=== PATIENT | male | born 1960 | race African-American/Black ===

== ENCOUNTER 2016-09-16 11:47 | Emergency (ER) | payer MEDICAID, OTHER ==
[~2016-09-16] VITALS: Ht 185.4 cm; Wt 69.0 kg
[~2016-09-16 11:47] MED LIST: ACET325T21 PO; ASPI-515 PO; BACL-19 PO; BISA10SU65 PR; CELE200C PO; DIPH25CA61 PO; DOCU-30 PO; ENOX30DI3 SQ; ENOX40SY4 SQ; FLUO20CA8 PO; FLUO40CA9 PO; HYDR-3240 PO; HYDR-3307 PO; LORA-446 PO; MULT-257 PO; MULT-484 PO; OXYC5TAB3 PO; PHEN100C PO; PREG75CA PO; RIFA300C3 PO; RIVA15TA PO; RIVA20TA PO; SENN1TAB7 PO; TRAM50TA2 PO; TRAZ100T15 PO; TRAZ50TA18 PO
[2016-09-16] MEDS ORDERED: SODIUM CHLORIDE FLUSH 10ML SYR IVF ONE (12:30)
[2016-09-16] MEDS ORDERED: SODIUM CHLORIDE 0.9% 1,000ML IVBOLUS ONE (12:30)
[2016-09-16 13:05] LABS: BLOOD UREA NITROGEN 9 mg/dL (7-18)
[2016-09-16 13:06] LABS: ASPARTATE AMINO TRANSFERASE 24 U/L (15-37)
[2016-09-16 13:07] LABS: IS PT STATUS REG ER OR PRE ER? YES
[2016-09-16 13:21] VITALS: BP 137/65
[2016-09-16] MEDS ORDERED: ONDANSETRON ODT 4 MG ONE (13:30)
[2016-09-16] MEDS ORDERED: ONDANSETRON ODT 4 MG PO ONE (13:30)
== END 2016-09-16 14:31 | disposition home or self-care (01) ==
LOC: ED 13:26
DX: R42 Dizziness and giddiness (principal); J44.9 Chronic obstructive pulmonary disease, unspecified
CPT/HCPCS: 36415; 80053; 84484; 85025; 96360; 99284; J7030; Q0162

== ENCOUNTER 2016-10-24 11:27 | Inpatient (IN) | payer MEDICAID ==
[~2016-10-24] VITALS: Ht 185.4 cm; Wt 58.3 kg
[2016-10-24] MEDS ORDERED: SODIUM CHLORIDE 0.9% 1,000 ML IV ONE (11:56)
[2016-10-24] MEDS ORDERED: SODIUM CHLORIDE FLUSH 10ML SYR IVF ONE (12:00)
[2016-10-24] MEDS ORDERED: SODIUM CHLORIDE 0.9% 1,000ML IVBOLUS ONE (12:00)
[2016-10-24 12:42] LABS: HEMATOCRIT 42.5 % (39.2-51.8); HEMOGLOBIN 13.6 g/dL (13.7-18.0); WHITE BLOOD COUNT 8.9 x10^3/uL (3.4-10)
[2016-10-24 12:52] LABS: ASPARTATE AMINO TRANSFERASE 66 U/L (15-37); BLOOD UREA NITROGEN 6 mg/dL (7-18)
[2016-10-24 12:57] LABS: IS PT STATUS REG ER OR PRE ER? YES
[2016-10-24 13:16] LABS: DIFF TOTAL CELLS COUNTED 100 CELL DIFF
[2016-10-24 13:17] LABS: ANISOCYTOSIS 1+; VERIFY COUNTS? YES
[2016-10-24] MEDS ORDERED: LIDOCAINE 1%, 20ML ONE (13:52)
[2016-10-24] MEDS ORDERED: SODIUM CHLORIDE FLUSH 10ML SYR IVF PRN (15:00)
[2016-10-24] MEDS ORDERED: ENOXAPARIN 40 MG/0.4 ML SQ SCH (15:30)
[2016-10-24] MEDS ORDERED: PHEN100C PO ×2 (16:06→16:07)
[2016-10-24] MEDS ORDERED: OXYC1TAB7 PO (16:07)
[2016-10-24 16:55] LABS: IS PT STATUS REG ER OR PRE ER? YES
[2016-10-24] MEDS ORDERED: OMNIPAQUE 350 MG/ML, 100ML BOTTLE ONE (18:06)
[2016-10-24 18:16] VITALS: BP 163/92
[2016-10-24 20:51] VITALS: BP 138/67
[2016-10-24] MEDS: ENOXAPARIN 80 MG/0.8 ML SQ SCH (20:54)
[2016-10-24] MEDS: HYDROcodone/APAP 5/325 TABLET PO PRN (20:54)
[2016-10-24 22:36] VITALS: BP 163/92
[2016-10-24 22:38] LABS: IS PT STATUS REG ER OR PRE ER? NO
[2016-10-24] MEDS ORDERED: PHENYTOIN 100 MG CAPSULE PO ONE (23:30)
[2016-10-25 02:28] VITALS: BP 124/52
[2016-10-25 05:59] LABS: HEMATOCRIT 35.6 % (39.2-51.8); HEMOGLOBIN 11.4 g/dL (13.7-18.0); WHITE BLOOD COUNT 5.9 x10^3/uL (3.4-10)
[2016-10-25] MEDS ORDERED: SODIUM CHLORIDE 0.9% 1,000 ML IV SCH (06:00)
[2016-10-25 06:14] LABS: DIFF TOTAL CELLS COUNTED 100 CELL DIFF
[2016-10-25 06:16] LABS: ANISOCYTOSIS 1+; VERIFY COUNTS? YES
[2016-10-25 06:18] LABS: POIKILOCYTOSIS 1+; TARGET CELLS 1+
[2016-10-25 06:34] LABS: ASPARTATE AMINO TRANSFERASE 37 U/L (15-37); BLOOD UREA NITROGEN 6 mg/dL (7-18)
[2016-10-25 08:00] VITALS: BP 130/80
[2016-10-25] MEDS: HYDROcodone/APAP 5/325 TABLET PO PRN ×2 (09:01→13:59)
[2016-10-25] MEDS: FLUOXETINE 20 MG CAPSULE PO SCH (09:30)
[2016-10-25] MEDS: OXYcodone/APAP 5/325MG TABLET PO SCH ×3 (09:30→22:35)
[2016-10-25] MEDS: ENOXAPARIN 80 MG/0.8 ML SQ SCH ×2 (09:38→22:35)
[2016-10-25 13:07] VITALS: BP 148/80
[2016-10-25] MEDS: PHENYTOIN 100 MG CAPSULE PO SCH (13:59)
[2016-10-25 20:00] VITALS: BP 141/72
[2016-10-25] MEDS ORDERED: PHENYTOIN 100 MG CAPSULE PO SCH (21:00)
[2016-10-26 02:00] VITALS: BP 127/66
[2016-10-26] MEDS: OXYcodone/APAP 5/325MG TABLET PO SCH ×2 (02:30→06:30)
[2016-10-26 08:19] VITALS: BP 125/66
[2016-10-26] MEDS: FLUOXETINE 20 MG CAPSULE PO SCH ×2 (09:00→09:02)
[2016-10-26] MEDS: PHENYTOIN 100 MG CAPSULE PO SCH (09:02)
[2016-10-26] MEDS: HYDROcodone/APAP 5/325 TABLET PO PRN (09:03)
[2016-10-26] MEDS ORDERED: ENOXAPARIN 60 MG/0.6 ML SQ SCH (10:00)
[2016-10-26] MEDS ORDERED: RIVA15TA PO (13:29)
[2016-10-26] MEDS ORDERED: RIVA20TA PO (13:29)
== END 2016-10-26 14:52 | disposition home or self-care (01) | DRG 299 ==
LOC: ED 11:45 → EDIP 14:37 → 4WST 18:02
PROVIDERS: ADMIT Internal Medicine; ATTEND Internal Medicine
PROC: 02HV33Z Insertion of Infusion Device into Superior Vena Cava, Percutaneous Approach (ICD-10-PCS; principal; 2016-10-24)
PROC: B5181ZA Fluoroscopy of Superior Vena Cava using Low Osmolar Contrast, Guidance (ICD-10-PCS; 2016-10-24)
DX: I82.412 Acute embolism and thrombosis of left femoral vein (principal); K85.20 Alcohol induced acute pancreatitis without necrosis or infection; K86.1 Other chronic pancreatitis; R07.9 Chest pain, unspecified; G40.909 Epilepsy, unspecified, not intractable, without status epilepticus; J44.9 Chronic obstructive pulmonary disease, unspecified; I35.8 Other nonrheumatic aortic valve disorders; K74.60 Unspecified cirrhosis of liver; F32.9 Major depressive disorder, single episode, unspecified; K80.20 Calculus of gallbladder without cholecystitis without obstruction
CPT/HCPCS: 36415; 36569; 71010; 71275; 72192; 74183; 76700; 76937; 77001; 80053; 80185; 81003; 83605; 83690; 83880; 84443; 84484; 85025; 85610; 85730; 93005; 93306; 93970; 96360; J1650; J3490; Q9967; C1751; J7030

== ENCOUNTER 2016-10-26 19:42 | Emergency (ER) | payer MEDICAID ==
[~2016-10-26] VITALS: Ht 185.4 cm; Wt 59.8 kg
[~2016-10-26 19:42] MED LIST changes: +DOCU-131 PO; -DOCU-30 PO; +OXYC1TAB7 PO
[2016-10-26 19:43] VITALS: BP 125/74
[2016-10-26] MEDS ORDERED: RIVAROXABAN 15 MG TABLET PO ONE (20:00)
== END 2016-10-26 20:49 | disposition home or self-care (01) ==
LOC: ED 20:30
DX: Z76.0 Encounter for issue of repeat prescription (principal); J44.9 Chronic obstructive pulmonary disease, unspecified
CPT/HCPCS: 99282; 99283

== ENCOUNTER 2016-10-29 18:08 | Emergency (ER) | payer MEDICAID ==
[~2016-10-29] VITALS: Ht 185.4 cm; Wt 57.9 kg
[~2016-10-29 18:08] MED LIST changes: -DOCU-131 PO; +DOCU-30 PO
[2016-10-29 18:58] LABS: BLOOD UREA NITROGEN 7 mg/dL (7-18)
[2016-10-29 19:08] LABS: HEMATOCRIT 35.6 % (39.2-51.8); HEMOGLOBIN 11.4 g/dL (13.7-18.0); WHITE BLOOD COUNT 6.6 x10^3/uL (3.4-10)
[2016-10-29 19:27] LABS: DIFF TOTAL CELLS COUNTED 100 CELL DIFF
[2016-10-29 19:30] LABS: ANISOCYTOSIS 1+; POLYCHROMASIA 1+
[2016-10-29 19:34] LABS: VERIFY COUNTS? YES
[2016-10-29 19:45] VITALS: BP 154/80
== END 2016-10-29 19:48 | disposition home or self-care (01) ==
LOC: ED 19:42
DX: S30.0XXA Contusion of lower back and pelvis, initial encounter (principal); J44.9 Chronic obstructive pulmonary disease, unspecified; F32.9 Major depressive disorder, single episode, unspecified; Z96.642 Presence of left artificial hip joint; X58.XXXA Exposure to other specified factors, initial encounter; Y93.89 Activity, other specified; Y92.89 Other specified places as the place of occurrence of the external cause; Y99.8 Other external cause status
CPT/HCPCS: 36415; 80048; 82040; 85025; 85610; 85730; 99284

== ENCOUNTER 2016-11-08 19:30 | Inpatient (IN) | payer MEDICAID ==
[~2016-11-08] VITALS: Ht 185.4 cm; Wt 63.4 kg
[~2016-11-08 19:30] MED LIST changes: +DOCU-131 PO; -DOCU-30 PO
[2016-11-08] MEDS ORDERED: OXYcodone/APAP 5/325MG TABLET PO ONE (20:00)
[2016-11-08 20:03] LABS: DIFF TOTAL CELLS COUNTED 100 CELL DIFF; HEMATOCRIT 38.5 % (39.2-51.8); HEMOGLOBIN 12.5 g/dL (13.7-18.0); WHITE BLOOD COUNT 6.7 x10^3/uL (3.4-10)
[2016-11-08 20:13] LABS: ASPARTATE AMINO TRANSFERASE 269 U/L (15-37); BLOOD UREA NITROGEN 8 mg/dL (7-18)
[2016-11-08 20:22] LABS: VERIFY COUNTS? YES
[2016-11-08 20:23] LABS: ANISOCYTOSIS 1+; HYPOCHROMIA 1+
[2016-11-08 20:24] LABS: POLYCHROMASIA 1+
[2016-11-08] MEDS ORDERED: SODIUM CHLORIDE 0.9% 1,000 ML IV ONE ×2 (21:48→22:18)
[2016-11-08] MEDS ORDERED: THIAMINE 100MG TABLET PO ONE ×2 (22:00)
[2016-11-08] MEDS ORDERED: SODIUM CHLORIDE 0.9% 1,000ML IVBOLUS ONE (22:00)
[2016-11-08] MEDS ORDERED: SODIUM CHLORIDE FLUSH 10ML SYR IVF ONE (22:00)
[2016-11-08] MEDS ORDERED: ONDANSETRON 2MG/ML, 2ML IVPush PRN (22:30)
[2016-11-08] MEDS ORDERED: SODIUM CHLORIDE FLUSH 10ML SYR IVF PRN (22:30)
[2016-11-08 23:49] VITALS: BP 140/76
[2016-11-09] MEDS ORDERED: TRAZODONE 50MG TABLET PO PRN (02:30)
[2016-11-09] MEDS ORDERED: ACETAMINOPHEN 325 MG TABLET PO PRN (02:30)
[2016-11-09] MEDS ORDERED: HYDROmorphone 2 MG/ML, 1ML IVPush PRN (02:30)
[2016-11-09 02:52] VITALS: BP 128/80
[2016-11-09] MEDS: OXYcodone IR 5MG TABLET PO PRN ×2 (02:54→08:41)
[2016-11-09] MEDS: ENOXAPARIN 40 MG/0.4 ML SQ SCH (02:54)
[2016-11-09] MEDS: THIAMINE 100 MG, MVI ADULT 10 ML, FOLIC ACID 1 MG in D5%-0.9% NACL 1,000 ML IV SCH (02:54)
[2016-11-09] MEDS: KETOROLAC 30 MG/1 ML IVPush PRN (05:16)
[2016-11-09 05:30] LABS: ASPARTATE AMINO TRANSFERASE 202 U/L (15-37); BLOOD UREA NITROGEN 5 mg/dL (7-18)
[2016-11-09 07:54] VITALS: BP 133/74
[2016-11-09] MEDS: LACTULOSE 10 GM/15 ML UDC PO SCH ×2 (08:41→20:16)
[2016-11-09] MEDS ORDERED: LORazepam 2 MG/ML, 1ML IV PRN ×3 (13:00)
[2016-11-09] MEDS: CHLORDIAZEPOXIDE 25 MG CAPSULE PO SCH ×3 (13:55→20:15)
[2016-11-09] MEDS: SODIUM CHLORIDE 0.9% 1,000 ML IV SCH (13:55)
[2016-11-09 14:39] VITALS: BP 144/77
[2016-11-09 19:57] VITALS: BP 124/69
[2016-11-10 01:20] VITALS: BP 124/75
[2016-11-10] MEDS: ENOXAPARIN 40 MG/0.4 ML SQ SCH (02:57)
[2016-11-10] MEDS: THIAMINE 100 MG, MVI ADULT 10 ML, FOLIC ACID 1 MG in D5%-0.9% NACL 1,000 ML IV SCH (02:58)
[2016-11-10 05:48] LABS: BLOOD UREA NITROGEN 5 mg/dL (7-18)
[2016-11-10 05:51] LABS: ASPARTATE AMINO TRANSFERASE 134 U/L (15-37)
[2016-11-10 07:02] LABS: HEMATOCRIT 34.1 % (39.2-51.8); WHITE BLOOD COUNT 4.9 x10^3/uL (3.4-10)
[2016-11-10 07:03] LABS: DIFF TOTAL CELLS COUNTED 100 CELL DIFF
[2016-11-10 07:06] LABS: ANISOCYTOSIS 1+
[2016-11-10 07:07] LABS: VERIFY COUNTS? YES
[2016-11-10] MEDS: LACTULOSE 10 GM/15 ML UDC PO SCH (08:19)
[2016-11-10] MEDS: CHLORDIAZEPOXIDE 25 MG CAPSULE PO SCH (08:19)
[2016-11-10 08:52] VITALS: BP 118/75
[2016-11-10] MEDS: SODIUM CHLORIDE 0.9% 1,000 ML IV SCH (12:36)
[2016-11-10] MEDS ORDERED: CHLORDIAZEPOXIDE 10 MG CAPSULE PO PRN (13:30)
[2016-11-10] MEDS ORDERED: LACTULOSE 10 GM/15 ML UDC PO PRN (14:00)
[2016-11-10 14:50] VITALS: BP 169/94
[2016-11-10 15:03] VITALS: BP 122/78
[2016-11-10 18:46] VITALS: BP 111/59
[2016-11-10] MEDS: KETOROLAC 30 MG/1 ML IVPush PRN (19:02)
[2016-11-10] MEDS: ALUMINUM/MAG/SIMETHICONE 30 ML UDC PO PRN (21:20)
[2016-11-11] MEDS: THIAMINE 100 MG, MVI ADULT 10 ML, FOLIC ACID 1 MG in D5%-0.9% NACL 1,000 ML IV SCH (01:45)
[2016-11-11] MEDS: KETOROLAC 30 MG/1 ML IVPush PRN (01:45)
[2016-11-11] MEDS: ENOXAPARIN 40 MG/0.4 ML SQ SCH (01:45)
[2016-11-11] MEDS: ALUMINUM/MAG/SIMETHICONE 30 ML UDC PO PRN (03:20)
[2016-11-11 08:19] LABS: ASPARTATE AMINO TRANSFERASE 129 U/L (15-37); BLOOD UREA NITROGEN 7 mg/dL (7-18)
[2016-11-11] MEDS ORDERED: PHENYTOIN 100 MG CAPSULE PO SCH (10:00)
[2016-11-11] MEDS ORDERED: DOCU-131 PO (10:53)
[2016-11-11] MEDS ORDERED: HYDR-3237 PO (11:11)
[2016-11-11 13:46] VITALS: BP 129/72
[2016-11-11 14:10] VITALS: BP 129/72
== END 2016-11-11 15:47 | disposition home or self-care (01) | DRG 897 ==
LOC: ED 19:44 → EDIP 22:16 → SUATTDRO 22:39 → 5SO 23:42
PROVIDERS: ADMIT Hospitalist; ATTEND Internal Medicine
DX: F10.129 Alcohol abuse with intoxication, unspecified (principal); K70.10 Alcoholic hepatitis without ascites; K70.30 Alcoholic cirrhosis of liver without ascites; F19.959 Other psychoactive substance use, unspecified with psychoactive substance-induced psychotic disorder, unspecified; J44.9 Chronic obstructive pulmonary disease, unspecified; F39 Unspecified mood [affective] disorder; M25.552 Pain in left hip; Y90.0 Blood alcohol level of less than 20 mg/100 ml; F17.200 Nicotine dependence, unspecified, uncomplicated; F41.9 Anxiety disorder, unspecified; G40.909 Epilepsy, unspecified, not intractable, without status epilepticus; G89.29 Other chronic pain; Z79.2 Long term (current) use of antibiotics; Z86.718 Personal history of other venous thrombosis and embolism; Z91.19 Patient's noncompliance with other medical treatment and regimen
CPT/HCPCS: 36415; 80053; 80307; 83735; 84100; 85025; 85610; 93005; 96360; 96361; J1650; J1885; J3411; J7042; J7030

== ENCOUNTER 2016-11-26 03:48 | Emergency (ER) | payer MEDICAID ==
[~2016-11-26] VITALS: Ht 185.4 cm; Wt 68.2 kg
[~2016-11-26 03:48] MED LIST changes: +HYDR-3237 PO
[2016-11-26] MEDS ORDERED: KETOROLAC 30 MG/1 ML ONE (04:41)
[2016-11-26] MEDS ORDERED: KETOROLAC 30 MG/1 ML IM ONE (05:00)
[2016-11-26 05:21] LABS: HEMATOCRIT 38.5 % (39.2-51.8); HEMOGLOBIN 12.9 g/dL (13.7-18.0); WHITE BLOOD COUNT 6.3 x10^3/uL (3.4-10)
[2016-11-26 05:24] LABS: BLOOD UREA NITROGEN 9 mg/dL (7-18)
[2016-11-26 05:36] LABS: DIFF TOTAL CELLS COUNTED 100 CELL DIFF
[2016-11-26 05:40] LABS: VERIFY COUNTS? YES
[2016-11-26 05:41] LABS: ANISOCYTOSIS 1+
[2016-11-26 06:09] VITALS: BP 108/66
== END 2016-11-26 06:59 | disposition home or self-care (01) ==
LOC: ED 04:13
DX: G89.29 Other chronic pain (principal); M25.552 Pain in left hip; J44.9 Chronic obstructive pulmonary disease, unspecified; G40.909 Epilepsy, unspecified, not intractable, without status epilepticus
CPT/HCPCS: 36415; 73502; 80048; 82040; 85025; 85651; 86141; 96372; 99285; J1885

== ENCOUNTER 2016-12-25 13:16 | Inpatient (IN) | payer MEDICAID ==
[~2016-12-25] VITALS: Ht 185.4 cm; Wt 56.3 kg
[2016-12-25] MEDS ORDERED: MAALOX/HYOSCYAMINE/LIDOCAINE 45 ML BTL ONE (13:41)
[2016-12-25 14:27] LABS: DIFF TOTAL CELLS COUNTED 100 CELL DIFF; HEMATOCRIT 36.4 % (39.2-51.8); HEMOGLOBIN 12.1 g/dL (13.7-18.0); WHITE BLOOD COUNT 6.6 x10^3/uL (3.4-10)
[2016-12-25 14:32] LABS: ASPARTATE AMINO TRANSFERASE 118 U/L (15-37); BLOOD UREA NITROGEN 5 mg/dL (7-18)
[2016-12-25 14:53] LABS: VERIFY COUNTS? YES
[2016-12-25] MEDS ORDERED: MAALOX/HYOSCYAMINE/LIDOCAINE 45 ML BTL PO ONE (15:00)
[2016-12-25] MEDS ORDERED: SODIUM CHLORIDE 0.9% 1,000 ML IV ONE ×2 (16:48→17:30)
[2016-12-25] MEDS ORDERED: SODIUM CHLORIDE FLUSH 10ML SYR IVF ONE ×2 (17:00→18:00)
[2016-12-25] MEDS ORDERED: LORazepam 2 MG/ML, 1ML ONE (18:28)
[2016-12-25] MEDS ORDERED: HYDROcodone/APAP 5/325 TABLET PO PRN (18:30)
[2016-12-25] MEDS ORDERED: hydrALAzine 20 MG/ML, 1ML IVPush PRN (18:30)
[2016-12-25] MEDS ORDERED: ACETAMINOPHEN 325 MG TABLET PO PRN (18:30)
[2016-12-25] MEDS ORDERED: ONDANSETRON 2MG/ML, 2ML IVPush PRN (18:30)
[2016-12-25] MEDS ORDERED: LABETALOL 5MG/ML, 20ML IVPush PRN (18:30)
[2016-12-25] MEDS ORDERED: LORazepam 2 MG/ML, 1ML IVPush ONE (18:30)
[2016-12-25 20:00] VITALS: BP 132/70
[2016-12-25] MEDS: HYDROmorphone 2 MG/ML, 1ML IVPush PRN ×2 (20:10→23:07)
[2016-12-25] MEDS ORDERED: ALBUTEROL/IPRATROPIUM 2.5MG/0.5MG, 3 ML NPPB PRN (23:00)
[2016-12-25] MEDS: THIAMINE 100 MG, MVI ADULT 10 ML, FOLIC ACID 1 MG in D5%-0.9% NACL 1,000 ML IV SCH (23:07)
[2016-12-25] MEDS: POTASSIUM CHLORIDE 20 MEQ in LACTATED RINGERS 1,000 ML IV SCH (23:07)
[2016-12-25] MEDS: DOCUSATE 100 MG CAPSULE PO SCH (23:08)
[2016-12-25] MEDS: ENOXAPARIN 40 MG/0.4 ML SQ SCH (23:08)
[2016-12-25] MEDS: PHENYTOIN 100 MG CAPSULE PO SCH (23:08)
[2016-12-26] MEDS: LORazepam 2 MG/ML, 1ML IVPush PRN ×5 (00:11→17:33)
[2016-12-26] MEDS: HYDROmorphone 2 MG/ML, 1ML IVPush PRN ×3 (03:21→21:12)
[2016-12-26 03:33] VITALS: BP 137/73
[2016-12-26 06:24] LABS: ASPARTATE AMINO TRANSFERASE 70 U/L (15-37); BLOOD UREA NITROGEN 6 mg/dL (7-18)
[2016-12-26 06:56] VITALS: BP 137/76
[2016-12-26] MEDS: DOCUSATE 100 MG CAPSULE PO SCH ×2 (09:00→21:12)
[2016-12-26] MEDS: POTASSIUM CHLORIDE 20 MEQ in LACTATED RINGERS 1,000 ML IV SCH ×2 (09:15→18:44)
[2016-12-26 12:43] VITALS: BP 146/70
[2016-12-26] MEDS: FAMOTIDINE 20 MG/2 ML IVPush SCH ×2 (13:14→21:12)
[2016-12-26] MEDS: PHENYTOIN 100 MG CAPSULE PO SCH (21:12)
[2016-12-26 21:27] VITALS: BP 135/75
[2016-12-27] MEDS: ENOXAPARIN 40 MG/0.4 ML SQ SCH (00:42)
[2016-12-27] MEDS: LORazepam 2 MG/ML, 1ML IVPush PRN ×2 (00:42→08:04)
[2016-12-27] MEDS: THIAMINE 100 MG, MVI ADULT 10 ML, FOLIC ACID 1 MG in D5%-0.9% NACL 1,000 ML IV SCH ×2 (00:43→00:56)
[2016-12-27] MEDS: POTASSIUM CHLORIDE 20 MEQ in LACTATED RINGERS 1,000 ML IV SCH ×4 (00:57→22:00)
[2016-12-27] MEDS: HYDROmorphone 2 MG/ML, 1ML IVPush PRN (04:25)
[2016-12-27 04:35] VITALS: BP 149/75
[2016-12-27 07:55] LABS: ASPARTATE AMINO TRANSFERASE 45 U/L (15-37); BLOOD UREA NITROGEN 3 mg/dL (7-18)
[2016-12-27 08:01] VITALS: BP 144/85
[2016-12-27] MEDS: DOCUSATE 100 MG CAPSULE PO SCH ×2 (08:04→20:19)
[2016-12-27] MEDS: FAMOTIDINE 20 MG/2 ML IVPush SCH ×2 (08:04→20:21)
[2016-12-27] MEDS: KETOROLAC 30 MG/1 ML IVPush SCH ×3 (10:09→22:00)
[2016-12-27] MEDS: HYDROcodone/APAP 5/325 TABLET PO PRN ×2 (11:55→20:19)
[2016-12-27] MEDS: CHLORDIAZEPOXIDE 25 MG CAPSULE PO SCH ×2 (11:55→16:20)
[2016-12-27] MEDS ORDERED: HYDROmorphone 2 MG/ML, 1ML IVPush PRN ×2 (12:30→19:00)
[2016-12-27 13:50] VITALS: BP 134/70
[2016-12-27] MEDS ORDERED: hydrALAzine 20 MG/ML, 1ML IVPush PRN (19:00)
[2016-12-27] MEDS ORDERED: ACETAMINOPHEN 325 MG TABLET PO PRN (19:00)
[2016-12-27] MEDS ORDERED: ALBUTEROL/IPRATROPIUM 2.5MG/0.5MG, 3 ML NPPB PRN (19:00)
[2016-12-27] MEDS ORDERED: LABETALOL 5MG/ML, 20ML IVPush PRN (19:00)
[2016-12-27] MEDS ORDERED: ONDANSETRON 2MG/ML, 2ML IVPush PRN (19:00)
[2016-12-27] MEDS: PHENYTOIN 100 MG CAPSULE PO SCH (20:20)
[2016-12-27 20:24] VITALS: BP 140/84
== END 2016-12-27 22:30 | disposition left against medical advice (07) | DRG 439 ==
LOC: ED 14:10 → EDIP 16:51 → 4NOR 18:46
PROVIDERS: ADMIT Hospitalist; ATTEND Hospitalist
DX: K85.20 Alcohol induced acute pancreatitis without necrosis or infection (principal); F10.288 Alcohol dependence with other alcohol-induced disorder; F11.20 Opioid dependence, uncomplicated; K74.60 Unspecified cirrhosis of liver; F10.239 Alcohol dependence with withdrawal, unspecified; K86.0 Alcohol-induced chronic pancreatitis; G40.909 Epilepsy, unspecified, not intractable, without status epilepticus; D64.9 Anemia, unspecified; F32.9 Major depressive disorder, single episode, unspecified; J44.9 Chronic obstructive pulmonary disease, unspecified; Z53.21 Procedure and treatment not carried out due to patient leaving prior to being seen by health care provider; K80.20 Calculus of gallbladder without cholecystitis without obstruction; N20.0 Calculus of kidney; Z91.14 Patient's other noncompliance with medication regimen; Z88.0 Allergy status to penicillin
CPT/HCPCS: 36415; 74176; 80053; 80061; 83690; 85025; 96374; J1170; J1650; J1885; J3411; J3480; J7042; J2060; J7030; J7120; S0028

== ENCOUNTER 2017-01-24 02:51 | Emergency (ER) | payer MEDICAID ==
[~2017-01-24] VITALS: Ht 185.4 cm; Wt 56.3 kg
[2017-01-24 05:01] VITALS: BP 126/72
[2017-01-24 05:06] LABS: BLOOD UREA NITROGEN 6 mg/dL (7-18)
[2017-01-24] MEDS ORDERED: CLINDAMYCIN 150 MG/ML, 6ML IM ONE (05:30)
[2017-01-24] MEDS ORDERED: CLINDAMYCIN 150 MG/ML, 6ML ONE (06:09)
== END 2017-01-24 06:40 | disposition home or self-care (01) ==
LOC: ED 03:08
DX: G89.29 Other chronic pain (principal); M25.552 Pain in left hip; L03.115 Cellulitis of right lower limb; Z96.642 Presence of left artificial hip joint; Z88.0 Allergy status to penicillin
CPT/HCPCS: 36415; 72190; 80048; 82040; 96372